=== PATIENT | male | born 1940 | race Caucasian/White ===

== ENCOUNTER 2017-10-06 10:24 | Emergency (ER) | payer OTHER ==
[~2017-10-06] VITALS: Ht 157.5 cm; Wt 59.0 kg
[~2017-10-06 10:24] MED LIST: ACID REDUCER150 MG PO; ANORO ELLIPTA1 EACH INH; ASPIRIN325 M2 PO; ATIVAN1 M1 PO; CLOPIDOGREL75 M1 PO; FUROSEMIDE40 M1 PO; HUMALOG KW100 UNIT/1 SC; HUMULIN 70100 UNIT/1 SC; LEVEMIR100 UNIT/1 SC; LIPITOR80 M1 PO; LOPRESSOR100 M1 PO; METOPROLOL TART25 M1 PO; NAC600 M1 PO; NITRO-DUR1 EAC2 TOP; NITROGLYCERIN4.1 GM SL; NOVOLOG100 UNIT/2 SC; OMEPRAZOLE20 M3 PO; OMEPRAZOLE40 M1 PO; PRINIVIL5 M1 PO; PROAIR HFA8.5 GM INH; PULMICORT0.25 MG/3 INH/SOL; SPIRIVA18 MCG INH; TOUJEO SOL300 UNIT/1 SC; VITAMIN D32000 UNIT PO
--- NOTE | 2017-10-06 10:56 | ED GENERAL ADULT ---
See Addendum History of Present Illness General Chief Complaint: Nausea, Vomiting, Diarrhea Stated Complaint: NVD Source: patient, family, old records Exam Limitations: no limitations Vital Signs & Intake/Output Vital Signs & Intake/Output Vital Signs Date Time Temp Pulse Resp B/P B/P Pulse O2 O2 Flow FiO2 Mean Ox Delivery Rate 10/06 1645 70 121/58 10/06 1421 98.0 65 18 145/65 99 Room Air 10/06 1258 97.9 64 18 159/60 97 Room Air 10/06 1217 Room Air 10/06 1029 98.6 67 18 96/49 98 Room Air Allergies Coded Allergies: No Known Allergies (05/17/16) Triage Note: 76 YO MALE TO TRIAGE C/O VOMITING AFER EATING DINNER LAST PM. FAMILY STATES PT WAS RECENTLY SEEN HERE FOR DEHYDRATION. BP 96/49 AT THIS TIME. PT ALERT AND ORIENTED X3 BUT APPEARS LETHARGIC IN TRIAGE. WHEN ASKED ABOUT PAIN, PT POINTS TO CENTER OF CHEST. EKG ORDERED. Triage Nurses Notes Reviewed? yes Onset: Gradual Duration: worse persistent since (2 DAYS) Timing: recent history Injury Environment: home Severity: moderate Severity Numbers: 8 No Modifying Factors: none HPI: Patient is a 76-year-old male with history of diabetes, hypertension, presenting to the emergency department with chief complaint of generalized malaise, weakness, nausea vomiting diarrhea worse persistent since last night. According to family he's been dealing with diarrhea for the past several months, has seen specialists in [place] where he resides half of the year and had an endoscopy, colonoscopy and CAT scans which show nothing according to the patient. Patient was seen and evaluated in the emergency department approximately one week ago for similar symptoms, patient was diagnosed with orthostatic hypotension, hydrated and released. He's been doing well at home since then. They went out to dinner yesterday evening and patient had blood in broil and cream of mushroom soup and immediately after eating started getting sick to his stomach. He started having worsening diarrhea that was nonbloody. Family also reports several episodes of nonbloody nonbilious emesis since last night. No fevers or chills. No sick contacts or recent travel. Denies recent antibiotic use. Patient does report that he has mild epigastric pain at this time. Was recently diagnosed with hiatal hernia. According to blood glucose level has been between 100 100 at home. (Miky PA,Sahara) Reconcile Medications Albuterol Sulfate (Proair Hfa) 8.5 GM HFA.AER.AD 2 PUF INH 4 TIMES/DAY COPD ( Reported) Aspirin (Aspirin*) 325 MG TABLET 1 TAB PO DAILY HEART/BLOOD (Reported) Atorvastatin Calcium (Lipitor) 80 MG TABLET 1 TAB PO DAILY CHOLESTEROL ( Reported) Furosemide 40 MG TABLET 1 TAB PO DAILY DIURETIC (Reported) Hyoscyamine (Levsin) 0.125 MG TABLET 1 TAB PO Q4 PRN ABDOMINAL SPASMS Insulin Glargine,Hum.rec.anlog (Toujeo Solostar) 300 UNIT/ML (1.5 ML) INSULN.PEN 16 UNITS SC QPM DM (Reported) Insulin Lispro (Humalog Kwikpen U-100) 100 UNIT/ML INSULN.PEN DM (Reported) Lisinopril (Prinivil) 5 MG TABLET 1 TAB PO DAILY blood presuure Metoprolol Tartrate (Lopressor) 100 MG TABLET 0.5 TAB PO DAILY HEART/BP ( Reported) Omeprazole 20 MG TABLET.DR 1 TAB PO DAILY GI (Reported) Ranitidine HCl (Acid Prototype Fabricator) 150 MG TABLET 1 TAB PO BID GI (Reported) Tiotropium [place] (Spiriva) 18 MCG CAP.W.DEV 1 CAP INH PRN RESP. (Reported) (Carlos KOO,Alberto Mijares) Past History Travel History Traveled to [place] past 21 day No Medical History Any Pertinent Medical History? see below for history Neurological: CVA EENT: NONE Cardiovascular: cardiomyopathy, hypertension, hyperlipidemia, STENTS PACER Respiratory: COPD Gastrointestinal: GERD Hepatic: NONE Renal: chronic kidney disease Musculoskeletal: osteoarthritis Psychiatric: anxiety Endocrine: diabetes Blood Disorders: NONE Cancer(s): GALLBLADDER CANCER EDUCATION AND DEVELOPMENT MANAGER/Reproductive: NONE History of MRSA: No History of VRE: No History of CDIFF: No Surgical History Surgical History: non-contributory Psychosocial History Who do you live with Spouse Services at Home None What is your primary language Sudanese Tobacco Use: Current Daily Use Daily Tobacco Use Amount/Type: => 5 Cigarettes daily Family History Family History, If Any: Relation not specified for: *No pertinent family history Hx Contributory? No (Sahara Macedo) Review of Systems Review of Systems Constitutional: Reports: malaise, weakness. Comments Review of systems: See HPI, All other systems negative. Constitutional, no chills fever HEENT: No visual changes no sore throat no congestion Cardiovascular: No chest pain ,palpitation , orthopnea or ankle swelling Skin, no jaundice no rashes Respiratory: No dyspnea sputum or hemoptysis GI : positive nausea, vomiting, diarrhea : No dysuria No hematuria Muscle skeletal: no back pain, no neck pain, Neurologic: No numbness no confusion, no headache Psych: No stress anxiety or depression,. Heme/endocrine: No bruising no bleeding no polyuria or polydipsia Immunology: No splenectomy or history of AIDS (Miky CASTLE,Sahara) Physical Exam Physical Exam General Appearance: well developed/nourished, no apparent distress, alert, awake , comfortable Comments: Well-developed well-nourished person in no acute distress, SLIGHTLY PALE APPEARING HEENT: extraocular motion intact, no nystagmus. Pupils equally round and reactive to light and accommodation. Pupils approximately 2 mm bilaterally, reactive equally. Nose is atraumatic. External auditory canal and Tympanic membranes clear. Pharynx normal. No swelling or edema. Dry oral mucosa. Slight pallor noted to bulbar conjunctiva bilaterally. Neck: Supple, no lymphadenopathy Back: Nontender, no CVA tenderness. Full range of motion Cardiovascular: Regular rate and rhythms , positive murmur to auscultation Respiratory: Chest nontender. No respiratory distress.breath sounds slightly diminished to auscultation bilaterally, rhonchorous cough on exam. Abdomen: Soft, mildly tender to palpation in epigastric region with guarding, no rebound tenderness. Tender also in the left lower quadrant without guarding or rebound tenderness. Nondistended, no appreciable organomegaly. Normal bowel sounds. No ascites RECTAL: SMALL EXTERNAL hemorrhoid noted, nonthrombosed. Brown stool, guaiac positive. Extremity: No edema, no calf tenderness to palpation, normal and equal pulses. Full range of motion of upper and lower extremities. Gyroscopic Instrument Mechanic strength is equal and symmetric bilaterally. Muscular strength 4 out of 5 in upper and lower extremity associated on the stretcher. Neuro: Alert oriented x3, motor sensory normal, cranial nerves II through XII grossly intact. Skin: No appreciable rash on exposed skin, skin is warm and dry. Psych: Mood and affect is normal, memory and judgment is normal. Core Measures ACS in differential dx? Yes CVA/TIA Diagnosis: No Sepsis Present: No Sepsis Focused Exam Completed? No (Miky CATSLE,Sahara) Progress Differential Diagnoses I considered the following diagnoses in my evaluation of the patient: Dehydration, electrolyte abnormality, orthostatic hypotension, biliary dysfunction, cholecystitis, cholangitis, GI bleed, hemorrhoidal bleeding, gastroenteritis, food poisoning, electrolyte abnormality, ACS Plan of Care: Orders Procedure Date/time Status TROPONIN LEVEL 10/06 1451 Complete EKG 10/06 1451 Active LACTIC ACID 10/06 1339 Active LIPASE 10/06 1102 Complete AMYLASE 10/06 1102 Complete ACETONE 10/06 1102 Complete Add-on Test (ER Only) 10/06 1057 Active Add-on Test (ER Only) 10/06 1056 Active Telemetry/Manager Production 10/06 1039 Active URINALYSIS 10/06 1039 Complete TROPONIN LEVEL 10/06 1039 Complete PARTIAL THROMBOPLASTIN TIME 10/06 1039 Complete PROTHROMBIN TIME 10/06 1039 Complete LACTIC ACID 10/06 1039 Complete COMPREHENSIVE METABOLIC PANEL 10/06 1039 Complete CBC WITHOUT DIFFERENTIAL 10/06 1039 Complete B-TYPE NATRIURETIC PEP (BNP) 10/06 1039 Complete EKG 10/06 1033 Active Current Medications Sig/Amna Start time Last Medication Dose Stop Time Status Admin Sodium Chloride 1,000 ML BOLUS ONE 10/06 1700 UNVr (Normal Saline 0.9%) 10/06 1759 Laboratory Tests 10/06/17 1520: Troponin I 0.05 10/06/17 1334: Urine Color YEL, Urine Clarity CLEAR, Urine pH 6.0, Ur Specific [place] 1.025, Urine Protein TRACE H, Urine Ketones TRACE H, Urine Nitrite NEG, Urine Bilirubin NEG, Urine Urobilinogen 0.2, Ur Leukocyte Esterase NEG, Ur Microscopic SEDIMENT EXAMINED, Urine RBC RARE, Hyaline Casts 1-3 H, Urine Mucus FEW, Urine Hemoglobin NEG, Urine Glucose NEG 10/06/17 1102: Anion Gap 11, Estimated GFR 35 L, BUN/Creatinine Ratio 25.3 H, Glucose 144 H, Lactic Acid 1.0, Calcium 8.8, Total Bilirubin 0.4, AST 31, ALT 26, Alkaline Phosphatase 111, Troponin I 0.06, Pxa-D-Jmthipbakzk Pept 1980 H, Total Protein 5.8 L, Albumin 3.2 L, Globulin 2.6, Albumin/Globulin Ratio 1.2, Amylase 84, Lipase 86, PT 11.8, INR 1.13, APTT 28, CBC w Diff NO MAN DIFF REQ, RBC 3.84 L, MCV 93.1, MCH 30.6, RDW 14.3, MPV 8.8, Gran % 77.8 H, Lymphocytes % 13.9 L, Monocytes % 7.5, Eosinophils % 0.5, Basophils % 0.3, Absolute Granulocytes 9.0 H, Absolute Lymphocytes 1.6, Absolute Monocytes 0.9 H, Absolute Eosinophils 0.1 , Absolute Basophils 0, PUBS MCHC 32.8 L, Acetone Level NEGATIVE 10/06/2017 4:40:14 PM patient feeling much improved and back hydration. Family informed of all laboratory results. Discuss lower H&H with Dr. Villeda, recommending patient follow up outpatient. Patient nontoxic. Patient encouraged to increase fluid intake at home as it was explained that he is dehydrated. Second troponin and EKG are unchanged. No chest pain. Discuss with . Diagnostic Imaging: Viewed by Me: Radiology Read, CT Scan. Discussed w/RAD: Radiology Read, CT Scan. Radiology Impression: PATIENT: JOHN SONG JR PRESENT AGE: 76 PATIENT ACCOUNT NO: [id number] : 42 LOCATION: [facility] ORDERING PHYSICIAN: Sahara CASTLE SERVICE DATE: 10/06/17 EXAM TYPE: RAD - XRY-PORTABLE CHEST XRAY EXAMINATION: XR CHEST PORTABLE CLINICAL INFORMATION: Weakness. COMPARISON: Chest done on 03/26/2009. TECHNIQUE: Portable frontal view of the chest was obtained. FINDINGS: Hyperinflated lung field is present bilaterally. Both lung mejia are symmetrically expanded and are clear. The cardiomediastinal silhouette is within normal limits. Radiopaque coronary arterial stent is visualized along the left mid lateral cardiac outline. Dual lead pacer wire is present, appear intact. There is no pleural effusion present. The visualized upper abdomen is unremarkable. IMPRESSION: No acute cardiopulmonary disease. DICTATED BY: Earnest Rondon MD DATE/TIME DICTATED:10/23 STATIONARY STEAM ENGINEER:JUDAH DATE/TIME TRANSCRIBED:10/06/171156 CONFIDENTIAL, DO NOT COPY WITHOUT APPROPRIATE AUTHORIZATION. <Electronically signed in Other Vendor System> SIGNED BY: Earnest Rondon MD 10/06/17 1208, ATIENT: JOHN SONG JR PRESENT AGE: 76 PATIENT ACCOUNT NO: [id number] : 42 LOCATION: [facility] ORDERING PHYSICIAN: Sahara CASTLE SERVICE DATE: 10/06/17 EXAM TYPE: CAT - CT ABD & PELVIS W/O IV CONTRAS EXAMINATION: CT ABDOMEN AND PELVIS WITHOUT CONTRAST CLINICAL INFORMATION: Nausea, vomiting, diarrhea and abdominal pain. COMPARISON: None TECHNIQUE: Multidetector volumetric imaging was performed from the superior aspect of the liver through the pubic symphysis. Sagittal and coronal reformatted images were obtained on the technologist's workstation. DLP: 234.94 mGy-cm FINDINGS: LUNG BASES: The visualized lung bases are unremarkable. LIVER, GALLBLADDER, AND BILIARY TREE: A few scattered punctate calcifications are noted within the liver parenchyma, most consistent with calcified granulomas. Evaluation is technically limited due to lack of intravenous contrast. There is a large calcified gallstone identified measures 1.3 cm at its maximum dimension. The gallbladder is apparently collapsed. Evaluation is technically limited due to lack of gallbladder distention. Intraluminal mass is not excluded. PANCREAS: Unremarkable. SPLEEN: Unremarkable. ADRENAL GLANDS: Unremarkable. KIDNEYS AND URETERS: The kidneys are normal in size, shape, and attenuation. No hydronephrosis, hydroureter, or calculi seen. No perinephric stranding. BLADDER: Unremarkable. GASTROINTESTINAL TRACT: Colonic diverticulosis without CT features of superimposed acute diverticulitis is noted. There is no abnormal bowel dilatation, air-fluid levels suggestive of obstruction present. ABDOMINAL WALL: Fat-containing left-sided inguinal scrotal hernia is noted. LYMPH NODES: No pathologically enlarged retroperitoneal, mesenteric, pelvic, inguinal lymphadenopathy present. VASCULAR: Diffuse atherosclerotic disease is noted within the aorta and its branches. The distal abdominal aorta is ectatic and measures 2.6 x 2.4 cm. PELVIC VISCERA: There is no pelvic mass present. There is no free fluid and/or free air present. OSSEOUS STRUCTURES: No suspicious lytic or sclerotic abnormality. IMPRESSION: 1. Solitary calcified gallstone is identified measuring 1.3 cm. The gallbladder is collapsed, not optimally evaluated. Possibility of intraluminal mass is not excluded. 2. Likely calcified granulomas within the liver. 3. Colonic diverticulosis. 4. Diffuse atherosclerotic disease within the aorta and its branches with distal abdominal aortic ectasia measuring 2.6 cm. DICTATED BY: Earnest Rondon MD DATE/TIME DICTATED:10/06/171320 STATIONARY STEAM ENGINEER:JUDAH DATE/TIME TRANSCRIBED:1320 CONFIDENTIAL, DO NOT COPY WITHOUT APPROPRIATE AUTHORIZATION. < Electronically signed in Other Vendor System> SIGNED BY: Earnest Rondon MD 10/06/17 1342 Initial ED EKG: ATRIAL SENSED VENTRICULAR PACED COMPLEXES, 65 BPM Repeat EKG: unchanged (Miky CASTLE,Sahara) Departure Departure Time of Disposition: 1634 Disposition: HOME OR SELF CARE Condition: Stable Clinical Impression Primary Impression: Dehydration Secondary Impressions: Anemia Referrals: Sushant Webb MD Patient Has No Primary Care Dr (PCP/Family) Additional Instructions: follow-up with gastroenterology, call to make an appointment. Increase fluids as you were dehydrated today and the emergency department. Take Levsin help with abdominal discomfort. Return for worsening symptoms or concerns. PATIENT: JOHN SONG JR PRESENT AGE: 76 PATIENT ACCOUNT NO: [id number] : 42 LOCATION: [facility] ORDERING PHYSICIAN: Sahara CASTLE SERVICE DATE: 10/06/17 EXAM TYPE: CAT - CT ABD & PELVIS W/O IV CONTRAS EXAMINATION: CT ABDOMEN AND PELVIS WITHOUT CONTRAST CLINICAL INFORMATION: Nausea, vomiting, diarrhea and abdominal pain. COMPARISON: None TECHNIQUE: Multidetector volumetric imaging was performed from the superior aspect of the liver through the pubic symphysis. Sagittal and coronal reformatted images were obtained on the technologist's workstation. DLP: 234.94 mGy-cm FINDINGS: LUNG BASES: The visualized lung bases are unremarkable. LIVER, GALLBLADDER, AND BILIARY TREE: A few scattered punctate calcifications are noted within the liver parenchyma, most consistent with calcified granulomas. Evaluation is technically limited due to lack of intravenous contrast. There is a large calcified gallstone identified measures 1.3 cm at its maximum dimension. The gallbladder is apparently collapsed. Evaluation is technically limited due to lack of gallbladder distention. Intraluminal mass is not excluded. PANCREAS: Unremarkable. SPLEEN: Unremarkable. ADRENAL GLANDS: Unremarkable. KIDNEYS AND URETERS: The kidneys are normal in size, shape, and attenuation. No hydronephrosis, hydroureter, or calculi seen. No perinephric stranding. BLADDER: Unremarkable. GASTROINTESTINAL TRACT: Colonic diverticulosis without CT features of superimposed acute diverticulitis is noted. There is no abnormal bowel dilatation, air-fluid levels suggestive of obstruction present. ABDOMINAL WALL: Fat-containing left-sided inguinal scrotal hernia is noted. LYMPH NODES: No pathologically enlarged retroperitoneal, mesenteric, pelvic, inguinal lymphadenopathy present. VASCULAR: Diffuse atherosclerotic disease is noted within the aorta and its branches. The distal abdominal aorta is ectatic and measures 2.6 x 2.4 cm. PELVIC VISCERA: There is no pelvic mass present. There is no free fluid and/or free air present. OSSEOUS STRUCTURES: No suspicious lytic or sclerotic abnormality. IMPRESSION: 1. Solitary calcified gallstone is identified measuring 1.3 cm. The gallbladder is collapsed, not optimally evaluated. Possibility of intraluminal mass is not excluded. 2. Likely calcified granulomas within the liver. 3. Colonic diverticulosis. 4. Diffuse atherosclerotic disease within the aorta and its branches with distal abdominal aortic ectasia measuring 2.6 cm. DICTATED BY: Earnest Rondon MD DATE/TIME DICTATED:10/06/171320 STATIONARY STEAM ENGINEER:JUDAH DATE/TIME TRANSCRIBED:10/06/171320 CONFIDENTIAL, DO NOT COPY WITHOUT APPROPRIATE AUTHORIZATION. <Electronically signed in Other Vendor System> SIGNED BY: Earnest Rondon MD 10/06/17 1342 Departure Forms: Customer Survey General Discharge Information Prescriptions: Current Visit Scripts Hyoscyamine (Levsin) 1 TAB PO Q4 PRN ABDOMINAL SPASMS #20 TAB (Sahara Macedo) PA/HEAD NURSE Co-Sign Statement Statement: ED Attending supervision documentation- [X] I saw and evaluated the patient. I have also reviewed all the pertinent lab results and diagnostic results. I agree with the findings and the plan of care as documented in the PA's/HEAD NURSE's documentation. [X] I have reviewed the ED Record and agree with the PA's/HEAD NURSE's documentation. [] Additions or exceptions (if any) to the PAs/HEAD NURSE's note and plan are summarized below: [] (Carlos KOO,Alberto Mijares) Critical Care Note Critical Care Note Critical Care Time: non-applicable (Sahara Macedo)
[2017-10-06 11:24] LABS: ABSOLUTE BASOPHIL COUNT 0 /CUMM (0.0-0.2); ABSOLUTE EOSINOPHIL COUNT 0.1 /CUMM (0.0-0.7); ABSOLUTE LYMPH COUNT 1.6 /CUMM (1.2-3.4); ABSOLUTE MONOCYTE COUNT 0.9 /CUMM (0.10-0.60); BASOPHIL % 0.3 % (0.0-2.0); EOSINOPHIL % 0.5 % (0-5); GRANULOCYTE % 77.8 % (42.2-75.2); HEMATOCRIT 35.8 % (42-52); MEAN CORPUSCULAR HGB 30.6 PG (27.0-31.0); MEAN CORPUSCULAR HGB CONC 32.8 G/DL (33.0-37.0); MEAN CORPUSCULAR VOLUME 93.1 FL (80.0-94.0); MEAN PLATELET VOLUME 8.8 FL (7.4-10.4); PLATELET COUNT 306 /CUMM (130-400); RBC DISTRIBUTION WIDTH 14.3 % (11.5-14.5); RED BLOOD CELL CT 3.84 /CUMM (4.70-6.10); WHITE BLOOD CELL COUNT 11.5 /CUMM (4.8-10.8)
[2017-10-06 11:31] LABS: PT 11.8 SEC (9.4-12.5); PTT 28 SEC (25-37)
--- NOTE | 2017-10-06 12:08 | RADIOLOGY REPORT ---
EXAMINATION: XR CHEST PORTABLE CLINICAL INFORMATION: Weakness. COMPARISON: Chest done on 03/26/2009. TECHNIQUE: Portable frontal view of the chest was obtained. FINDINGS: Hyperinflated lung field is present bilaterally. Both lung mejia are symmetrically expanded and are clear. The cardiomediastinal silhouette is within normal limits. Radiopaque coronary arterial stent is visualized along the left mid lateral cardiac outline. Dual lead pacer wire is present, appear intact. There is no pleural effusion present. The visualized upper abdomen is unremarkable. IMPRESSION: No acute cardiopulmonary disease.
--- NOTE | 2017-10-06 13:42 | CT SCAN REPORT ---
EXAMINATION: CT ABDOMEN AND PELVIS WITHOUT CONTRAST CLINICAL INFORMATION: Nausea, vomiting, diarrhea and abdominal pain. COMPARISON: None TECHNIQUE: Multidetector volumetric imaging was performed from the superior aspect of the liver through the pubic symphysis. Sagittal and coronal reformatted images were obtained on the technologist's workstation. DLP: 234.94 mGy-cm FINDINGS: LUNG BASES: The visualized lung bases are unremarkable. LIVER, GALLBLADDER, AND BILIARY TREE: A few scattered punctate calcifications are noted within the liver parenchyma, most consistent with calcified granulomas. Evaluation is technically limited due to lack of intravenous contrast. There is a large calcified gallstone identified measures 1.3 cm at its maximum dimension. The gallbladder is apparently collapsed. Evaluation is technically limited due to lack of gallbladder distention. Intraluminal mass is not excluded. PANCREAS: Unremarkable. SPLEEN: Unremarkable. ADRENAL GLANDS: Unremarkable. KIDNEYS AND URETERS: The kidneys are normal in size, shape, and attenuation. No hydronephrosis, hydroureter, or calculi seen. No perinephric stranding. BLADDER: Unremarkable. GASTROINTESTINAL TRACT: Colonic diverticulosis without CT features of superimposed acute diverticulitis is noted. There is no abnormal bowel dilatation, air-fluid levels suggestive of obstruction present. ABDOMINAL WALL: Fat-containing left-sided inguinal scrotal hernia is noted. LYMPH NODES: No pathologically enlarged retroperitoneal, mesenteric, pelvic, inguinal lymphadenopathy present. VASCULAR: Diffuse atherosclerotic disease is noted within the aorta and its branches. The distal abdominal aorta is ectatic and measures 2.6 x 2.4 cm. PELVIC VISCERA: There is no pelvic mass present. There is no free fluid and/or free air present. OSSEOUS STRUCTURES: No suspicious lytic or sclerotic abnormality. IMPRESSION: 1. Solitary calcified gallstone is identified measuring 1.3 cm. The gallbladder is collapsed, not optimally evaluated. Possibility of intraluminal mass is not excluded. 2. Likely calcified granulomas within the liver. 3. Colonic diverticulosis. 4. Diffuse atherosclerotic disease within the aorta and its branches with distal abdominal aortic ectasia measuring 2.6 cm.
[2017-10-06] MEDS ORDERED: LEVSIN0.125 M1 PO (16:40)
[2017-10-06 19:00] VITALS: BP 119/58
== END 2017-10-06 19:14 ==
LOC: ERH 10:24
PROVIDERS: Physician Assistant
DX: E86.0 Dehydration (principal); D64.9 Anemia, unspecified
CPT/HCPCS: 71045; 74176; 81001; 93005; 93010; 96360; 96361